=== PATIENT | male | born 1975 | race Hispanic/Latino ===

== ENCOUNTER 2018-08-27 19:05 | Emergency (ER) | payer OTHER ==
[2018-08-27] MEDS ORDERED: FLEXERIL PO ONE (19:39)
[2018-08-27] MEDS ORDERED: NORCO 5/325 PO ONE (19:39)
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
[2018-08-27] MEDS ORDERED: DELTASONE PO NR (20:00)
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
[2018-08-27] MEDS ORDERED: FLEXERIL ONE (22:10)
[2018-08-27] MEDS ORDERED: NORCO 5/325 ONE (22:10)
[2018-08-27 22:28] VITALS: BP 137/100
== END 2018-08-28 00:06 | disposition home or self-care (01) ==
LOC: ED 19:05
DX: S39.012A Strain of muscle, fascia and tendon of lower back, initial encounter (principal); V59.49XA Driver of pick-up truck or van injured in collision with other motor vehicles in traffic accident, initial encounter; Y93.89 Activity, other specified; Y92.488 Other paved roadways as the place of occurrence of the external cause; Y99.8 Other external cause status
CPT/HCPCS: 72100; 99283; J7512